=== PATIENT | male | born 1945 | race Hispanic/Latino ===

== ENCOUNTER 2021-05-02 06:01 | Day surgery (SDC) | payer OTHER ==
[2021-04-26 11:42] LABS: Hematocrit 47.7 % (35.5-45.6); Mean Corpuscular HGB Conc 34 % (32-34); Mean Corpuscular Volume 90 fl (84-94); Platelet Count 175 K/mm3 (140-440); Red Cell Distribution Width 13.5 % (13.2-15.2)
[2021-04-26 12:04] LABS: BUN/Creatinine Ratio 26; Blood Urea Nitrogen 23 mg/dL (9-20); Calcium 10.5 mg/dL (8.4-10.2); Hemolysis Index 4
[~2021-05-02 06:01] MED LIST: ACETAMINOPHEN 500 MG TAB PO SCH; GABAPENTIN 100 MG CAP PO SCH; LACTATED RINGERS 1,000 ML IV SCH
[2021-05-02] MEDS ORDERED: ceFAZolin/STERILE WATER 2 GM/20 ML SYRINGE IV NR (07:00)
[2021-05-02] MEDS ORDERED: dexAMETHasone 20 MG/5 ML VIAL ONE (07:04)
[2021-05-02] MEDS ORDERED: KETOROLAC 30 MG/1 ML INJ ONE (07:04)
[2021-05-02] MEDS ORDERED: ROCURONIUM 50 MG/5 ML INJ IV ONE ×2 (07:04→09:17)
[2021-05-02] MEDS ORDERED: ONDANSETRON 4 MG/2 ML INJ ONE (07:04)
[2021-05-02] MEDS ORDERED: LIDOCAINE MPF (2%) 20 MG/1 ML VIAL 5 ML ONE (07:04)
[2021-05-02] MEDS ORDERED: fentaNYL 100 MCG/2 ML INJ ONE (07:05)
[2021-05-02] MEDS ORDERED: propofoL 200 MG/20 ML VIAL IV ONE (07:05)
[2021-05-02] MEDS ORDERED: KETAMINE/STERILE WATER 50 MG/ML SYRINGE ONE (07:05)
[2021-05-02] MEDS ORDERED: BUPIVACAINE/PF (0.25%) 2.5 MG/ML 30 ML VIAL INFILTRATI ONE ×3 (07:20→09:15)
[2021-05-02] MEDS ORDERED: LIDOCAINE (1%) 10 MG/1 ML VIAL 20 ML MDV ONE (07:20)
--- NOTE | 2021-05-02 07:23 | Anesthesia Consultation ---
Anesthesia Consult and Med Hx Date of service: 05/02/21 - Airway Anesthetic Teeth Evaluation: Good ROM Head & Neck: Adequate Mental/Hyoid Distance: Adequate Mallampati Class: Class II Intubation Access Assessment: Probably Good - Pre-Operative Health Status ASA Pre-Surgery Classification: ASA3 Proposed Anesthetic Plan: General - Pulmonary Hx Smoking: Yes (quit 40yrs ago) Hx Asthma: No (hx bronchiectasis; no recent issues) Hx Respiratory Symptoms: No - Cardiovascular System Hx Hypertension: No Hx Coronary Artery Disease: Yes (s/p stents x2 to LAD 2013; ASA/plavix held x5 days) Hx Heart Attack/AMI: No Hx Cardia Arrhythmia: No Hx Pacemaker: No Hx Internal Defibrillator: No - Central Nervous System CVA: No - Endocrine Hx Renal Disease: No Hx Liver Disease: No Hx Insulin Dependent Diabetes: No Hx Non-Insulin Dependent Diabetes: No Hx Hypothyroidism: Yes - Other Systems Hx Obesity: No - Additional Comments Anesthesia Medical History Comments: No prior GA.
[2021-05-02] MEDS ORDERED: HYDROmorphone 1 MG/1 ML INJ IV PRN (07:24)
--- NOTE | 2021-05-02 07:24 | Anesthesia Day of Surgery ---
Anesthesia Day of Surgery - Day of Surgery Patient Examined: Yes Patient H&P Reviewed: Yes Patient is NPO: Yes
[2021-05-02] MEDS ORDERED: MIDAZOLAM 2 MG/2 ML INJ ONE (07:43)
[2021-05-02] MEDS ORDERED: oxyCODONE /ACETAMINOPHEN 5-325MG TAB PO PRN (08:00)
[2021-05-02] MEDS ORDERED: ePHEDrine SULFATE 50 MG/1 ML INJ ONE (08:19)
[2021-05-02] MEDS ORDERED: LIDOCAINE (1%) 10 MG/1 ML VIAL 20 ML MDV INFILTRATI ONE ×2 (09:11)
[2021-05-02] MEDS ORDERED: LACTATED RINGERS 1,000 ML ONE (09:33)
[2021-05-02] MEDS ORDERED: HYDROmorphone 1 MG/1 ML INJ ONE (09:34)
[2021-05-02] MEDS ORDERED: GLYCOPYRROLATE 0.4 MG/2 ML INJ ONE (09:37)
[2021-05-02] MEDS ORDERED: NEOSTIGMINE 10MG/10 ML INJ MDV ONE (09:37)
--- NOTE | 2021-05-02 09:54 | Short Stay Summary ---
Short Stay Documentation Date of service: 05/02/21 - History Principal diagnosis: RIGHT INGUINAL HERNIA H&P: obtained from office - Allergies and Medications Current Medications: Allergies No Known Allergies Allergy (Verified 04/20/21 15:12) Home Medications Medication Instructions Recorded Confirmed Last Taken Type [place] Thyroid 60 mg PO 3XW 04/20/21 05/02/21 05/01/21 09:00 History [place] Thyroid 90 mg PO 4XW 04/20/21 05/02/21 04/30/21 09:00 History Aspirin [[place] Aspirin EC] 81 mg PO DAILY 04/20/21 05/02/21 04/27/21 09:00 History Clopidogrel [Plavix] 75 mg PO QDAY 04/20/21 05/02/21 04/27/21 09:00 History Rosuvastatin Calcium [Crestor] 40 mg PO DAILY 04/20/21 05/02/21 05/01/21 19:00 History Tamsulosin [Flomax] 0.4 mg PO QDAY 04/20/21 05/02/21 05/01/21 09:00 History Active Medications Acetaminophen (Acetaminophen 500 Mg Tab) 1,000 mg PO PREOP [place] Stop: 05/02/21 20:00 Last Admin: 05/02/21 06:50 Dose: 1,000 mg Cefazolin Sodium (Cefazolin/Sterile Water 2 Gm/20 Ml Syringe) 2 gm IV PREOP NR Stop: 05/02/21 21:00 Gabapentin (Gabapentin 100 Mg Cap) 100 mg PO PREOP [place] Stop: 05/02/21 20:00 Last Admin: 05/02/21 07:05 Dose: 100 mg Hydromorphone HCl (Hydromorphone 1 Mg/1 Ml Inj) 0.5 mg IV Q10MIN PRN PRN Reason: Pain , Severe (7-10) Stop: 05/02/21 20:00 Lactated Ringer's (Lactated Ringers) 1,000 mls @ 100 mls/hr IV DIRECT [place] Stop: 05/02/21 23:59 Last Admin: 05/02/21 07:28 Dose: 100 mls/hr Oxycodone/Acetaminophen (Oxycodone /Acetaminophen 5-325mg Tab) 1 tab PO ONCE PRN PRN Reason: Pain, Moderate (4-6) Stop: 05/02/21 10:00 - Brief post op/procedure progress note Date of procedure: 05/02/21 Pre-op diagnosis: RIGHT INGUINAL HERNIA Post-op diagnosis: same Procedure: robotic assisted right inguinal hernia repair with mesh Anesthesia: GETA, local, other (right ilioinguinal nerve block) Findings: moderate size direct right inguinal hernia containing fat Surgeon: GITA VARGAS Asset Protection Lead: TRAY JORDAN Estimated blood loss: minimal Pathology: none Condition: stable - Hospital course Hospital course: Patient observed in PACU and discharged home in stable condition when criteria met - Disposition Condition at discharge: Good Disposition: 01 HOME / SELF CARE / HOMELESS Short Stay Discharge Plan Activity: other (No heavy lifting greater than 15 to 20 pounds for the next 6 weeks.) Diet: regular Wound: open to air, per your surgeon's advice Additional Instructions: Please see attached discharge instructions Follow up with: [facility] [Primary Care Provider] - 7 Days GITA VARGAS DO [Staff Physician] - 14 Days Prescriptions: Gabapentin 300 mg PO BID 3 Days #6 cap oxyCODONE /ACETAMINOPHEN [Percocet 5/325 mg] 1 tab PO Q6H PRN #15 tablet PRN Reason: Pain , Severe (7-10)
--- NOTE | 2021-05-02 11:59 | Post Anesthesia Evaluation ---
- Post Anesthesia Evaluation Patient Participated: Yes Airway Patent: Yes Stable Respiratory Function: Yes Nausea/Vomiting: No Temp > 96.8F: Yes Pain Manageable: Yes Adequeate Hydration: Yes Anesthesia Complications: No
[2021-05-02 13:46] VITALS: BP 132/68
--- NOTE | 2021-05-04 15:41 | Operative Report ---
Operative Report Operative Report: Date of procedure: 05/02/21 Pre-op diagnosis: RIGHT INGUINAL HERNIA Post-op diagnosis: same Procedure: robotic assisted right inguinal hernia repair with mesh Anesthesia: GETA, local, other (right ilioinguinal nerve block) Findings: moderate size direct right inguinal hernia containing fat Surgeon: GITA VARGAS [employer]p Litigation Paralegal: TRAY JORDAN Estimated blood loss: minimal Pathology: none Condition: stable Hospital course: Patient observed in PACU and discharged home in stable condition when criteria met HPI and indication: Patient is a 75-year-old male who was referred to the surgery clinic for a bulge in the RIGHT groin. He was found to have a RIGHT inguinal hernia on physical exam. It was recommended that the hernia be repaired. I discussed all risk, benefits, alternatives to repair with the patient and questions were answered. I explained that if the hernia was found on the LEFT side at the same time, this would be fixed as well. The patient was agreeable. Consent obtained for robotic assisted RIGHT inguinal hernia repair with mesh, possible LEFT, possible open. Procedure in detail: Patient was identified in the preoperative area, take back to operating room placed on operative table in supine position. After anesthesia was induced both arms were tucked and all bony prominences padded appropriately. A Mathews catheter was sterilely placed by the circulating nurse. The abdomen and b/l groins were then prepped and draped in usual sterile fashion and a timeout performed. Local anesthetic was infiltrated to skin at the intended incision sites. A supraumbilical incision was made through which a Veress needle was inserted. Veress needle positioning was confirmed using saline drop test and the abdomen insufflated to 15 mmHg. Once the abdomen was insufflated, the Veress needle was removed and a 5 mm Optiview trocar was placed as incision. The abdomen is inspected there was no underlying injury to any of the abdominal structures. Patient was placed in Trendelenburg and the pelvis examined. There was a RIGHT inguinal hernia and no obvious hernia on the LEFT. At this point, an 8 mm right upper quadrant and left upper quadrant robotic trocars were then placed under direct visualization. The 5 mm supraumbilical trocar was removed and replaced with a 12 mm balloon trocar under direct visualization. A Ray-Chary was placed into the abdomen. The robot was then docked. A fenestrated bipolar was placed into arm #2 and a monopolar scissor in arm #1. The surgeon was then transferred to the console. First, I created a RIGHT sided preperitoneal flap. The peritoneum was scored approximately 5 to 6 cm from the hernia defect. The peritoneum was then incised from the midline to the ASIS. The preperitoneal flap was then developed in an avascular plane. I first defined the medial margin by dissecting to the pubic tubercle. The pubic tubercle was cleared of overlying fatty tissue using blunt dissection. I then created the lateral margin in a similar fashion. Great care was taken to avoid injury to any nerves. There was a direct inguinal hernia and the hernia sac and fat was gently reduced using blunt dissection and transecting cremasteric fibers with electrocautery. During the dissection, the cord structures were identified and protected. The cord structures and vas deferens were visualized throughout the entire dissection. Once the hernia sac was completely reduced, the peritoneal flap was checked for hemostasis. Any additional cremasteric fibers that were were tenting up the peritoneum were divided. Hemostasis was carefully ensured. The hernia was repaired using a RIGHT large 3D max mesh. The mesh along with suture material was placed into the abdomen by the health information assistant. The mesh was positioned into the preperitoneal flap in the usual fashion. The medial portion of the mesh was sutured to Amrit's ligament using an interrupted 2-0 Vicryl stitch. The lateral aspect of the mesh was sutured to the anterior lateral abdominal wall using a 2-0 Vicryl interrupted stitch. The mesh was seen to lay flat in the pocket with excellent coverage. An 18 F angiocath was inserted through the right lower abdominal wall under direct visualization and positioned in the preperitoneal pocket. The peritoneum was then reapproximated using 3-0 running V-Loc stitch. The entirety of the mesh was covered with peritoneum. The robot was then undocked and the surgeon scrubbed back in. The remainder of the case was performed laparoscopically. All sharp materials along with a Ray-Chary were removed from the abdomen under direct visualization. The 12 mm port was removed and the fascia closed using a interrupted 0 Vicryl stitch. The abdomen was then slowly desufflated and the mesh was seen to lay flat in the preperitoneal space. The remaining trocars were removed. Pre-peritoneal air was evacuated via the angiocath and it was then removed. Skin incisions were once again infiltrated with local anesthetic. RIGHT ilioinguinal nerve block was also performed with 5 cc of local anesthetic. The skin incisions were approximated with 4-0 Monocryl subcuticular stitches and skin glue. At the end of the case all sponge, instrument, sharp counts were correct x2. Patient was awoken from anesthesia and Mathews catheter removed. Both testicles were palpated in the scrotum in anatomic position. The patient was taken to PACU in stable condition.
== END 2021-05-02 11:35 | disposition home or self-care (01) ==
LOC: OR 06:01
PROVIDERS: ATTEND Surgery
DX: K40.90 Unilateral inguinal hernia, without obstruction or gangrene, not specified as recurrent (principal); E78.00 Pure hypercholesterolemia, unspecified; E03.9 Hypothyroidism, unspecified; Z20.822 Contact with and (suspected) exposure to COVID-19; Z79.899 Other long term (current) drug therapy; Z79.82 Long term (current) use of aspirin; Z87.891 Personal history of nicotine dependence; Z95.5 Presence of coronary angioplasty implant and graft; Z98.890 Other specified postprocedural states
CPT/HCPCS: 36415; 49650; 80048; 85027; C1781; J0690; J1100; J1170; J1815; J1885; J2250; J2405; J2704; J2710; J3010; J3490; J7120; S2900; U0003